=== PATIENT | female | born 1960 | race Caucasian/White ===

== ENCOUNTER 2024-02-20 16:48 | Emergency (ER) | payer MEDICARE, OTHER, SELFPAY ==
[2024-02-20 16:50] VITALS: BP 149/90
--- NOTE | 2024-02-20 17:30 | ED.GENMED ---
History of Present Illness
General
Chief Complaint: Musculo-Skeletal Complaint
Source: patient and spouse
Exam Limitations: none
Time Seen by Provider: 02/20/24 17:14
Nursing documentation reviewed up to this point in time: agreed with
Travel History
Have you had any contact with someone who has COVID-19?: No
Do you have any symptoms of coronavirus? Fever > 100 degrees, chills, cough, shortness of breath, sore throat, loss of taste or smell, muscle aches, or headache?: No
History of Present Illness
History of Present Illness:
63-year-old female with past medical history of diabetes hyperlipidemia presenting to the emergency department today with concerns of ongoing discomfort to a previously diagnosed fracture to the proximal tibia she is already been seen by orthopedics
and is pending an MRI. Denies significant increased swelling denies redness or warmth does have pain mainly worsened at night. She claims that she previously was using hydrocodone that she had leftover from previous issue which seem to work for
pain but has been taking without relief
Past History
Past History
ED Past Medical History: NIDDM (Borderline) and Other (Left ankle sprain)
ED Past Surgical History: Appendectomy, Gynecological (Hysterectomy, tubal ligation), Orthopedic (Right shoulder surgery) and Tonsilectomy
Social History
Tobacco: Non-smoker
Personal:
Living: with family
Employment: Employed
Review of Systems
Review of Systems
Allergies reviewed?: Yes
All Other Systems: ROS reviewed and negative except as documented in HPI and ROS
Phy Exam
Physical Exam
Physical Exam:
GENERAL: Alert , in no apparent distress
EYE: pupils equal and reactive
NECK: Supple, no significant adenopathy.
ENT: o/p clr, mmm.
CARDIAC: Regular rate and rhythm .
LUNGS: Clear breath sounds bilaterally, no acute respiratory distress, no wheezes/rales/rhonchi
ABDOMEN: Soft, without focal tenderness, no r/g, no cvat
NEUROLOGICAL: Alert and oriented, no focal neuro deficits
SKIN: Warm and dry, skin intact.
MUSCULOSKELETAL: No significant pain when palpating the left anterior knee no significant swelling no redness or warmth normal peripheral pulses no edema, well perfused.
PSYCH: Normal and appropriate interaction.
Course
Orders/Labs/Results
Orders:
Orders
02/20/24 17:30
Oxycodone/Acetaminophen [Percocet 5/325] 2 tablet PO NOW STA
02/20/24 17:41
Walker [Treatment- Walker] ONCE
Vital Signs
Initial and Last Documented VS:
Initial Vital Signs
Temp Pulse Resp BP Pulse Ox
99.0 F 99 18 149/90 99
02/20/24 16:50 02/20/24 16:50 02/20/24 16:50 02/20/24 16:50 02/20/24 16:50
Last Documented Vital Signs
Temp Pulse Resp BP Pulse Ox
99.0 F 99 18 149/90 99
02/20/24 16:50 02/20/24 16:50 02/20/24 16:50 02/20/24 16:50 02/20/24 16:50
MDM/Problems Addressed
MDM/Problems Addressed:
63-year-old female presenting to the emergency department today with concerns of a known tibial fracture that was seen at initially urgent care then orthopedics. They ordered an outpatient MRI. Has had ongoing pain. Previously had relief from
opioid but only had a few doses. Here her leg does not have any redness or warmth is able to range at her knee without severe pain no severe pain when no significant diffuse swelling normal distal pulses. Does not appear to be consistent with
blood clot or localized infection. Patient with likely ongoing symptoms due to fracture plan for treatment with pain medication and close outpatient follow-up.
*Critical Care Note
Total Time (30-74mins, 75-104mins- exclusive of procedures): Not Applicable
ED Attending Note
-
Portions of this chart may have been created with voice recognition software.� Occasional wrong word or��sound alike� substitutions may have occurred due to the inherent limitations of voice recognition software.
Discharge Plan
Departure
Patient Disposition: Home (Routine Discharge)
Date of Disposition: 02/20/24
Time of Disposition: 17:40
Patient with high blood pressure during this ER visit?: No
Condition: Good
Covid-19: Not Applicable
Discharge Problem:
Acute leg pain
Instructions: Muscle and Bone Pain (DC)
Prescriptions:
New
oxycodone-acetaminophen [Percocet] 5-325 mg tablet
1 tab PO Q6H PRN (Reason: Pain) Qty: 12 0RF
No Action
hydrocodone-ibuprofen 200 MG/7.5 MG tablet
1 tab PO Q4 PRN (Reason: Pain) Qty: 10 0RF
Activity Restrictions/Additional Instructions:
You came to the emergency department today with concerns of ongoing discomfort to your leg. Please follow-up closely get your MRI. You can take the pain medication 1 tab every 6 hours as needed for ongoing pain. Return to the emergency department
immediately for any worsening, new or concerning symptoms.
Interventions
Interventions:
*Risk Screen - Suicide Last Done: 02/20/24 17:42
*General Assessment Last Done: 02/20/24 17:42
*Neglect/Abuse Screening Last Done: 02/20/24 17:42
*ED COVID-19 Vaccine History Last Done: 02/20/24 17:42
*Nursing Disposition Last Done: 02/20/24 18:04
ED-Musculoskeletal Assessment Last Done: 02/20/24 17:44
Discharge Date and Time
Discharge Date/Time: 02/20/24 18:04
Print Language: ARMENIAN
[2024-02-20] MEDS: PERCOCET 5/325 2 TABLET PO (17:40)
== END 2024-02-20 18:04 | disposition home or self-care (01) ==
LOC: EMR 16:48
PROVIDERS: EMERGENCY PHYSICIAN Emergency Medicine; FAMILY PHYSICIAN Internal Medicine
DX: M79.606 Pain in leg, unspecified (principal); E11.9 Type 2 diabetes mellitus without complications; E78.00 Pure hypercholesterolemia, unspecified; Z90.49 Acquired absence of other specified parts of digestive tract; Z90.710 Acquired absence of both cervix and uterus
CPT/HCPCS: 99282

== ENCOUNTER → 2024-02-22 12:48 | Outpatient (REF) | payer MEDICARE, OTHER, SELFPAY | LOC: MRI 3T 12:48 | PROVIDERS: ATTENDING PHYSICIAN Orthopaedic Surgery; FAMILY PHYSICIAN Internal Medicine | DX: M25.562 Pain in left knee (principal) | CPT/HCPCS: 73721 ==

== ENCOUNTER → 2024-02-26 10:43 | Outpatient (REF) | payer MEDICARE, OTHER, SELFPAY ==
[2024-02-26 12:05] LABS: % Basophils 0.7 % (0-2); % Immature Granulocytes 0.3 % (0-0.5); % Lymphocytes 35.2 % (20.5-51.1); % Monocytes 6.8 % (1.7-9.3); Absolute Basophils 0.1 10^3/uL (0-0.2); Absolute Eosinophils 0.1 10^3/uL (0-0.7); Absolute Lymphocytes 2.4 10^3/uL (1.2-3.4); Absolute Monocytes 0.5 10^3/uL (0.1-0.6); Absolute Neutrophils 3.8 10^3/uL (1.4-6.5); Hematocrit 42.2 % (37.0-47.0); Hemoglobin 13.9 g/dL (12.0-16.0); Mean Corp Hgb Conc. 32.9 g/dL (33.0-37.0); Mean Corpuscular Hgb 30.7 pg (27.0-31.0); Mean Corpuscular Volume 93.2 fL (81.0-99.0); Mean Platelet Volume 10.8 fL (7.4-10.4); Nucleated Red Blood Cells % 0 %; Platelet Count 253 10^3/uL (130-400); Red Blood Cell Count 4.53 10^6/uL (4.20-5.40); Red Cell Dist. Width 13.2 % (11.5-14.5); White Blood Cell Count 6.9 10^3/uL (4.8-10.8)
[2024-02-26 13:10] LABS: Blood Urea Nitrogen 14 mg/dl (7-17); Calcium 9.7 mg/dl (8.4-10.2); Carbon Dioxide 27 mmol/L (22-30); Chloride 103 mmol/L (98-107); Glucose 238 mg/dl (70-99); Potassium 4.1 mmol/L (3.5-5.1); Sodium 137 mmol/L (135-145); eGFR > 60.00
== END ==
LOC: RAD 10:43
PROVIDERS: ATTENDING PHYSICIAN Orthopaedic Surgery; FAMILY PHYSICIAN Internal Medicine
DX: M79.662 Pain in left lower leg (principal); Z01.818 Encounter for other preprocedural examination
CPT/HCPCS: 36415; 80048; 85025; 93005; 93971